=== PATIENT | female | born 1990 | race Caucasian/White ===

== ENCOUNTER 2018-05-16 11:22 | Emergency (ER) | payer BC ==
[2018-05-16 13:45] LABS: URINE PH (Dip) POC 5.5 (5.0-8.5)
[2018-05-16 13:45] LABS: URINE BLOOD (Dip) POC 1+ (NEGATIVE); URINE GLUCOSE (Dip) POC Negative (NEGATIVE); URINE KETONES (Dip) POC Negative (NEGATIVE); URINE LEUKOCYTE EST (Dip) POC Trace (NEGATIVE); URINE NITRITE (Dip) POC Negative (NEGATIVE); URINE TOTAL PROTEIN POC Negative (NEGATIVE)
== END 2018-05-16 16:13 | disposition home or self-care (01) ==
LOC: FTE 11:22
DX: N30.00 Acute cystitis without hematuria (principal); F17.210 Nicotine dependence, cigarettes, uncomplicated; B37.9 Candidiasis, unspecified
CPT/HCPCS: 81003; 81025; 99284

== ENCOUNTER 2018-06-29 01:38 | Emergency (ER) | payer BC ==
[2018-06-29 03:54] LABS: ADD UMIC YES; UR ASCORBIC ACID NEGATIVE (NEGATIVE); UR BACTERIA FEW /HPF (NONE SEEN); UR BILIRUBIN (Dip) NEGATIVE (NEGATIVE); UR BLOOD (Dip) 3+ mg/dL (NEGATIVE); UR CLARITY CLEAR (CLEAR); UR COLOR STRAW (YELLOW); UR GLUCOSE (Dip) NEGATIVE (NEGATIVE); UR KETONES (Dip) NEGATIVE (NEGATIVE); UR LEUKOCYTE ESTERASE (Dip) TRACE Leu/ul (NEGATIVE); UR NITRITE (Dip) NEGATIVE (NEGATIVE); UR RBC 137 /HPF (0-5); UR SPECIFIC GRAVITY (Dip) 1.008 (1.003-1.030); UR SQUAMOUS EPITHELIAL CELL FEW /HPF (FEW); UR TOTAL PROTEIN (Dip) NEGATIVE (NEGATIVE); UR UROBILINOGEN (Dip) NEGATIVE (NEGATIVE); UR WBC 5 /HPF (0-5)
[2018-06-29] MEDS: LORAZEPAM 1 MG TAB PO (04:30)
[2018-06-29] MEDS: ASPIRIN 325 MG TAB PO (04:30)
== END 2018-06-29 04:31 | disposition home or self-care (01) ==
LOC: FTE 04:31
DX: F41.1 Generalized anxiety disorder (principal); B34.9 Viral infection, unspecified; R07.89 Other chest pain
CPT/HCPCS: 81001; 81025; 87400; 93005; 99284-25

== ENCOUNTER 2019-01-07 14:36 | Emergency (ER) | payer BC ==
[2019-01-07 17:24] LABS: URINE PH (Dip) POC 6.5 (5.0-8.5)
[2019-01-07 17:24] LABS: URINE TOTAL PROTEIN POC Negative (NEGATIVE)
[2019-01-07 17:25] LABS: URINE BLOOD (Dip) POC Trace-intact (NEGATIVE); URINE GLUCOSE (Dip) POC Negative (NEGATIVE); URINE KETONES (Dip) POC Negative (NEGATIVE); URINE LEUKOCYTE EST (Dip) POC 3+ (NEGATIVE); URINE NITRITE (Dip) POC Positive (NEGATIVE)
[2019-01-07] MEDS: IBUPROFEN 600 MG TAB PO (17:25)
[2019-01-19 18:58] LABS: URINE BLOOD (Dip) POC Trace-intact (NEGATIVE); URINE GLUCOSE (Dip) POC Negative (NEGATIVE); URINE KETONES (Dip) POC Negative (NEGATIVE); URINE LEUKOCYTE EST (Dip) POC 3+ (NEGATIVE); URINE NITRITE (Dip) POC Positive (NEGATIVE); URINE TOTAL PROTEIN POC Negative (NEGATIVE)
[2019-01-19 18:58] LABS: URINE PH (Dip) POC 6.5 (5.0-8.5)
== END 2019-01-07 17:49 | disposition home or self-care (01) ==
LOC: FTE 17:49
DX: N39.0 Urinary tract infection, site not specified (principal)
CPT/HCPCS: 81003; 81025; 99283